=== PATIENT | male | born 1965 | race Caucasian/White ===

== ENCOUNTER 2017-01-10 07:13 | Emergency (ER) | payer OTHER ==
[~2017-01-10] VITALS: Ht 182.9 cm; Wt 111.1 kg
[~2017-01-10 07:13] MED LIST: Ambien PO; DARVOCET-N 1001 EAC1 PO; FLEXERIL10 MG PO; HYDROCET 5-5001 EACH PO; MOTRIN800 MG PO; Norco 10/325 PO; Valium PO
[2017-01-10] MEDS ORDERED: LIDODERM 5% P1 PATCH TD (08:29)
[2017-01-10] MEDS ORDERED: MEDROL DOSEPAK4 MG PO (08:29)
[2017-01-10 09:30] VITALS: BP 98/70
== END 2017-01-10 10:56 | disposition home or self-care (01) ==
LOC: EME 07:13
DX: M54.5 Low back pain (principal); M54.2 Cervicalgia; G89.29 Other chronic pain; F17.200 Nicotine dependence, unspecified, uncomplicated
CPT/HCPCS: 99281; 99284; J1885; J2270

== ENCOUNTER → 2017-01-18 | Outpatient (CLI) | payer OTHER ==
[~2017-01-18] MED LIST changes: +LIDODERM 5% P1 PATCH TD; +MEDROL DOSEPAK4 MG PO
== END | disposition home or self-care (01) ==
LOC: RAD 13:30
DX: E88.2 Lipomatosis, not elsewhere classified (principal); I71.4 Abdominal aortic aneurysm, without rupture; M48.06 Spinal stenosis, lumbar region; M51.26 Other intervertebral disc displacement, lumbar region; M51.36 Other intervertebral disc degeneration, lumbar region; M46.96 Unspecified inflammatory spondylopathy, lumbar region
CPT/HCPCS: 62304; 72132

== ENCOUNTER → 2017-10-04 | Outpatient (CLI) | payer OTHER | END | disposition home or self-care (01) | LOC: EKG 08:22 | DX: I07.1 Rheumatic tricuspid insufficiency (principal); I09.89 Other specified rheumatic heart diseases | CPT/HCPCS: 93306 ==